=== PATIENT | male | born 1990 | race African-American/Black ===

== ENCOUNTER 2017-01-19 22:33 | Emergency (ER) | payer SELFPAY ==
[2017-01-20 00:19] VITALS: BP 133/98
== END 2017-01-20 00:19 | disposition home or self-care (01) ==
LOC: ED 22:33
DX: L02.212 Cutaneous abscess of back [any part, except buttock and flank] (principal); J45.909 Unspecified asthma, uncomplicated; F17.210 Nicotine dependence, cigarettes, uncomplicated

== ENCOUNTER 2018-08-12 22:35 | Emergency (ER) | payer OTHER ==
[~2018-08-12] VITALS: Ht 175.3 cm; Wt 83.0 kg
[2018-08-12 22:45] VITALS: Ht 175.3 cm; Wt 83.0 kg
[2018-08-12 23:39] VITALS: BP 152/103
== END 2018-08-12 23:39 | disposition home or self-care (01) ==
LOC: ED 22:35
DX: K13.70 Unspecified lesions of oral mucosa (principal); J45.909 Unspecified asthma, uncomplicated